=== PATIENT | female | born 1995 | race Two or more races ===

== ENCOUNTER 2018-07-11 16:49 | Emergency (ER) | payer OTHER ==
[~2018-07-11] VITALS: Ht 160 cm; Wt 61.0 kg
[2018-07-11 17:30] LABS: MICROSCOPIC AUTO
[2018-07-11 17:31] LABS: BASOPHILS # (AUTO) 0.02 x10^3/uL (0-0.1); BASOPHILS % (AUTO) 0 % (0-1); EOSINOPHILS # (AUTO) 0.16 x10^3/uL (0-0.4); EOSINOPHILS % (AUTO) 2 % (1-7); LYMPHOCYTES # (AUTO) 2.45 x10^3/uL (1-3.4); LYMPHOCYTES % (AUTO) 38 % (22-44); MD NO; MEAN CORPUSCULAR HEMOGLOBIN 31.7 pg (27.0-34.8); MEAN CORPUSCULAR HGB CONC 34.1 g/dL (32.4-35.8); MEAN CORPUSCULAR VOLUME 92.7 fL (80-100); MONOCYTES # (AUTO) 0.26 x10^3/uL (0.2-0.8); MONOCYTES % (AUTO) 4 % (2-9); NEUTROPHILS # (AUTO) 3.57 x10^3/uL (1.8-6.8); NEUTROPHILS % (AUTO) 55 % (42-75); PLATELET COUNT 311 x10^3/uL (130-400); RED BLOOD COUNT 4.62 x10^6/uL (3.82-5.3); RED CELL DISTRIBUTION WIDTH 13.5 % (9.6-15.2)
[2018-07-11 17:34] LABS: CULTURE INDICATED? YES
[2018-07-11 17:42] LABS: ALBUMIN 4.1 g/dL (3.4-5.0); ANION GAP 5 mmol/L (5-15); CALCIUM 8.7 mg/dL (8.5-10.1); CHLORIDE 111 mmol/L (98-107)
[2018-07-11 17:49] LABS: ALANINE AMINOTRANSFERASE 30 U/L (12-78); ALKALINE PHOSPHATASE 47 U/L (45-117); BILIRUBIN,TOTAL 0.1 mg/dL (0.2-1.0); CREATININE 1.12 mg/dL (0.55-1.02); TOTAL PROTEIN 7.7 g/dL (6.4-8.2)
--- NOTE | 2018-07-11 18:31 | NUR ---
TO ROOM AT THIS TIME
--- NOTE | 2018-07-11 18:42 | NUR ---
Pt presents to ED with boyfriend with c/o "abdominal cramping pain for two months, it was really bad last night, I usually go to sleep and wake up and it goes away, this morning I woke up and it didn't go away. I feel nauseated but I don't throw up. I don't have diarrhea." Pt rates epigastric pain a 4/10. Pt is tender to palpation of epigastric area. Pt denies vomiting, diarrhea, blood in stool or urine, increase in frequency, burning with urination, flank pain, abnormal vaginal bleeding, abnormal vaginal discharge. NADN. Pt connected to NIBP and continous pulse ox. Warm blanket offered for comfort measures. Call light within reach. All safety measures in place. No needs expressed at this time.
[2018-07-11 18:44] VITALS: BP 115/67
--- NOTE | 2018-07-11 19:06 | NUR ---
Patient given discharge instructions and they have confirmed that they understand the instructions. Patient ambulatory with steady gait. Pt left with all personal belongings, discharge paperwork, and referral.
== END 2018-07-11 19:10 | disposition home or self-care (01) ==
LOC: ED 18:45
DX: G89.29 Other chronic pain (principal); R10.13 Epigastric pain
CPT/HCPCS: 36415; 76700; 80053; 81001; 83690; 84703; 85025; 87086; 99284